=== PATIENT | male | born 1975 | race Two or more races ===

== ENCOUNTER 2023-10-29 14:00 | Outpatient (RCR) | payer OTHER, SELFPAY ==
--- NOTE | 2023-09-14 16:56 | PT.OPE ---
PT [place] [facility] PT [facility] Outpatient Eval Start: 09/14/23 15:07 Freq: Status: Active Protocol: Document 09/14/23 16:55 CJT (Rec: 09/14/23 16:56 CJT [id number]) E-signed By Jah Duffy PT Physical Therapy Outpatient Evaluation Insurance Information Recert Due Date 12/13/23 Insurance Name [employer] Medical Diagnosis Back Program Treating Diagnosis M54.2 - neck pain M54.6 - thoracic pain Referring MD Camilo, Olu PETERSON Subjective Subjective Pt complains of Left sided neck and upper back pain ongoing for approx 4 weeks now . No injury. Any lifting or reaching causes pain into his periscapular region. 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 Thinks that his pain is from repetitive overuse of his muscles. Pt has taken a dose of Prednisone which seemed to help. Pt reports that he had a similar issue about 2 years ago and this feels the same. Pt notes that this time around he is feeling some numbness in his upper back on the L side. Throughout the week his pain and numbness continues to worsen. He also feels progressive knots in his muscles. He also reports that he has been getting headaches. The pain starts on the L side of his neck and progresses throughout the L side of his head. Pt denies numbness/ tingling into UE but does say that he thinks he has had some loss of strength in his L hand but isn't 100% sure. Pain Comments 05/02 Current Work Status Web Software Engineer Occupation [employer] Precautions Therapy Limitations/Systems Review Not Limited Objective Other/Pertinent Objective Cervical ROM Extension - 46 Flexion - 55 *feels a stretch down his back R/L Side Bend - 27/30 R/L Rotation - 64/73 *feels a stretch on R with rotation to R R Shoulder ROM - WNL L Shoulder ROM - WNL Cervical Strength Extension - 5/5 MMT Flexion - 5/5 MMT R/L Side Bend - 5/5 MMT * feels pain in L scapular region with L sidebend testing R/L Rotation - 5/5 MMT R Shoulder Strength 5/5 MMT for all L Shoulder Strength 5/5 MMT for all R Scapular Strength Rhomboid - 5/5 MMT Mid Trap - 5/5 MMT Lower Trap - 5/5 MMT L Scapular Strength Rhomboid - 4/5 MMT Mid Trap - 4/5 MMT Lower Trap - 4+/5 MMT Palpation: pt reports tenderness/pain with palpation to L UT, levator, suboccipitals, rhomboids, and thoracic paraspinals Posture: excessive thoracic kyphosis with forward rounding of B shoulders Spurling's Compression: negative Assessment Assessment/Impression Amarjit is a 48 year old male who presents to our clinic for evaluation and treatment of cervical and upper back pain. Testing reveals excellent preservation of stretch and ROM in cervical spine and shoulders. Pt primarily has pain with palpation to many muscles of the L cervical and scapular region (see objective ). He will benefit from consistent stretching and massage to these muscles as well as progressive strengthening to his periscapular muscles. The nature of the pts condition was explained and all questions were answered to the pts satisfaction. Skilled PT services are medically necessary to address deficits and return patient to highest level of function. Recommend physical therapy sessions 2/ week for 6-9 weeks. Pt agrees with this plan. Printout of HEP was given for I completion and pt gives verbal understanding of each exercise . Primary Functional Limitations Lifting, carrying, reaching Plan of Care Rehabilitation Potential Excellent Physical Therapy Goals STG - To be completed in 2-3 weeks: 1. Pt will demonstrate improved cervical strength to 5/5 MMT in all directions to provide greater support to cervical spine and head. 2. Pt will report reduction in neck and upper back pain by factor of 2 so that they may roll over in bed without waking due to pain. 3. Pt will demo proper lifting mechanics with weights in our clinic to show understanding of proper body mechanics while lifting heavy items at work. LTG - To be completed in 6-9 weeks: 1. Pt to be I with HEP so that they may I manage progression of symptoms. 2. Pt will demo full and pain free cervical rotation ROM so that they may look over shoulder while driving to watch for traffic. 3. Pt will report absence of back pain with all activities so that they may return to full duties at work. Treatment Plan/Direct Interventions Electrical Stimulation,Heat, Ice/Cold/Vasopneumatic,Joint Mobilization,Manual Therapy, Self-Care/Home Management, Therapeutic Exercises Frequency/Duration 2/week for 6-9 weeks Patient Will Be Discharged From Therapy Completion of LTG(s),Skills Plateau,Independent w/HEP, Independently Progressing Evaluation Billing Untimed Code Treatment Minutes 55 PT Eval No Charge No Complexity Low Certification Information Initial Certification Date 09/14/23 Ending Certification Date 12/13/23 Provider Signature Shows Agreement With POC & Medical Necessity Physician Signature & Date Requested Please Sign/Date Here Physician Comment/Change : Physician NPI Number #
--- NOTE | 2023-10-22 14:46 | PT.OPDN ---
PT [place] [facility] Daily Note PT [facility] Outpatient Daily Note Start: 09/14/23 15:07 Freq: Status: Active Protocol: Document 10/22/23 14:04 CJT (Rec: 10/22/23 14:46 CJT [id number]) E-signed By Jah Duffy, PT PT OP Daily Progress Note Visit Information Note Type Recert/Progress Note Visit Number 10 Insurance Authorized Visits 18 Physician Authorized Visits eval and treat Insurance Information Recert Due Date 12/13/23 Insurance Name [employer] Medical Diagnosis Back Program Treating Diagnosis M54.2 - neck pain M54.6 - thoracic pain Referring MD Camilo, Olu PETERSON Subjective Subjective Pt continues to note less pain in his L shoulder blade but did have some burning pain in his L scapular region yesterday when he was out for a walk. Otherwise has no concerns. Home Exercise Home Exercise Comments [id number] Objective Other/Pertinent Objective Cervical ROM - WNL, equal bilaterally R Shoulder ROM - WNL L Shoulder ROM - WNL R Shoulder Strength 5/5 MMT for all L Shoulder Strength 5/5 MMT for all R Scapular Strength Rhomboid - 5/5 MMT Mid Trap - 5/5 MMT Lower Trap - 5/5 MMT L Scapular Strength Rhomboid - 5/5 MMT Mid Trap - 5/5 MMT Lower Trap - 5/5 MMT Patient Instructed in Risks/Benefits Yes Therapeutic Exercise Therapeutic Exercise Minutes (minutes) 20 Therapeutic Exercise: To Restore UBE x 6 minutes Functional Status Extensions with GTB 2 x 10 Horizontal abduction with GTB 2 x 10 Shoulder flexion with PA resistance with GTB 2 x 10 Split stance CC Rows, 32.5#, 4 x 6 ea Therapeutic Activity Therapeutic Activity Minutes (minutes) 15 Therapeutic Activities Comments Floor washes in quadruped 3 x 3 minutes ea - 1 minute therapeutic rest between sets Wall washes in tall kneel reaching away, in front, and cross-body 3 x 30 seconds ea Manual Therapy Techniques Manual Therapy Minutes (minutes) 10 Manual Therapy Techniques STM performed to L rhomboids, thoracic paraspinals, and medial border of scapula to reduce tissue tension and facilitate bloodflow to promote healing. Grade III PA mobilizations to L ribs to facilitate motion. Treatment Minutes Timed Code Treatment Minutes 45 Total Treatment Time 45 Billing Units Manual Therapy Units 1 Therapeutic Activity Units 1 Therapeutic Exercise Units 1 Assessment/Impression Assessment/Impression Amarjit has continued to progress during his time in therapy and is nearing full resolution in his symptoms. His shoulder and scapular strength are both full at this time and shoulder ROM us full as well. 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 We have progressed to performing exercises and activities that mimic this wax-on/wax-off motion with emphasis on scapular stability so that Amarjit may have less pain when he does return back to work. Recommend continued PT services to address deficits and return pt to highest level of function. Plan of Care Physical Therapy Goals STG - To be completed in 2-3 weeks: 1. Pt will demonstrate improved cervical strength to 5/5 MMT in all directions to provide greater support to cervical spine and head. 2. Pt will report reduction in neck and upper back pain by factor of 2 so that they may roll over in bed without waking due to pain. 3. Pt will demo proper lifting mechanics with weights in our clinic to show understanding of proper body mechanics while lifting heavy items at work. LTG - To be completed in 6-9 weeks: 1. Pt to be I with HEP so that they may I manage progression of symptoms. 2. Pt will demo full and pain free cervical rotation ROM so that they may look over shoulder while driving to watch for traffic. 3. Pt will report absence of back pain with all activities so that they may return to full duties at work. Daily Plan of Care Continue per POC Recertification Information Provider Signature Shows Agreement With POC & Medical Necessity
== END 2023-12-15 10:14 | disposition home or self-care (01) ==
PROVIDERS: Visit Provider Family Medicine
DX: M54.2 Cervicalgia (principal); Z51.89 Encounter for other specified aftercare
CPT/HCPCS: 97110; 97140; 97161; 97530